=== PATIENT | male | born 1935 | race African-American/Black ===

== ENCOUNTER 2019-01-24 12:45 | Observation (INO) | payer MEDICARE, BC ==
[~2019-01-24] VITALS: Ht 175.3 cm; Wt 62.5 kg
[2019-01-24 14:14] LABS: BASO % 0.4 % (0.0-2.0); EOS % 0.2 % (0-4.0); GRAN # 4.8 (1.4-6.5); GRAN % 56.4 % (42.2-75.2); HEMOGLOBIN 10.9 g/dl (13.5-18.0); LYMPH # 2.9 (1.2-3.4); LYMPH % 34.2 % (20.0-51.0); MEAN CELL VOLUME 94 fl (80.0-100.0); MEAN CORPUSCULAR HEMOGLOBIN 30 pg (27.0-31.0); MEAN CORPUSCULAR HGB CONC 32 g/dl (33.0-37.0); MEAN PLATELET VOLUME 10.7 fl (7.4-10.4); MONO # 0.7 (0.1-0.6); MONO % 8.1 % (1.7-9.3); PLATELET COUNT 177 K/mm3 (130-400); REDCELL DISTRIBUTION WIDTH-CV 13.8 % (11.5-14.5)
[2019-01-24 14:27] LABS: ALANINE AMINOTRANSFERASE 13 U/L (21-72); ALKALINE PHOSPHATASE 74 U/L (50-136); ANION GAP 14 mmol/L (7-16); AST,SGOT 31 U/L (15-37); BILIRUBIN,TOTAL 0.4 mg/dL (0.0-1.0); BLOOD UREA NITROGEN 55 mg/dL (9-20); CALCIUM 10.5 mg/dL (8.4-10.2); CARBON DIOXIDE 27 mmol/L (22-30); CHLORIDE 99 mmol/L (98-107); CREATININE, serum 2.33 (0.66-1.25); GLUCOSE 182 mg/dL (74-106); POTASSIUM 4.1 mmol/L (3.4-5.0); SODIUM 140 mmol/L (137-145); TOTAL PROTEIN 7.7 gm/dL (6.4-8.2)
[2019-01-24 14:32] LABS: HEMATOCRIT 33.7 % (42.0-52.0)
[2019-01-24 14:44] LABS: TROPONIN-I < 0.012 ng/mL (0.000-0.035)
[2019-01-24] MEDS ORDERED: ZYBAN150 M1 (17:42)
[2019-01-24] MEDS ORDERED: VITAMIN D31000 I1 PO (17:42)
[2019-01-24] MEDS ORDERED: COLACE 100100 MG/CAP PO (17:43)
[2019-01-24] MEDS ORDERED: ZOLOFT 100MG100 MG PO (17:43)
[2019-01-24] MEDS ORDERED: XELPROS2.5 ML OU (17:44)
[2019-01-24] MEDS ORDERED: BETIMOL 5 ML5 ML OU (17:44)
[2019-01-24] MEDS ORDERED: MEVACOR 20M20 MG/TAB PO (17:45)
[2019-01-24] MEDS ORDERED: LIPITOR 10MG10 MG PO (17:45)
[2019-01-24] MEDS ORDERED: NOVOLOGMIX70/30 SQ ×2 (17:47)
[2019-01-24] MEDS ORDERED: LOPRESSOR 225 MG/TAB PO (17:47)
[2019-01-24] MEDS ORDERED: MAXZIDE 50 MG-71 TAB PO (17:48)
[2019-01-24] MEDS ORDERED: MEGACE ORAL40 MG/ML PO (17:49)
[2019-01-24] MEDS ORDERED: MYRBETR50MG PO (17:49)
--- NOTE | 2019-01-24 21:16 | NUR ---
PT ARRIVED VIA GURNEY FROM ER WITH AND SON BY SIDE. PT HAS DEMENTIA AND ANSWERED QUESTIONS. PT DOES NOT WALK AT THIS TIME. PT JUST CAME OUT OF THE HOSPITAL FOR A ROUND OF ECT TREATMENT AND WAS IN THE HOSPITAL IN [place] FOR 5 WEEKS. [facility] TO [facility] FOR RE[facility]AB. PT A/O TO SELF. PT DENIES PAIN OR DISCOMFORT AT THIS TIME. LOOKED OVER [facility] LIST AND ADVISED THAT IT WAS CORRECT. CALL LIGHT WITHIN REACH.
[2019-01-24 21:29] VITALS: BP 157/78; PULSE 67; TEMP 98.5
[2019-01-24 23:40] VITALS: BP 143/76; PULSE 70; TEMP 98.4
[2019-01-25] MEDS ORDERED: WELLBUTRIN XL150 MG PO (02:23)
[2019-01-25] MEDS ORDERED: PRINIVIL10 MG PO (02:42)
[2019-01-25 03:12] VITALS: BP 155/76; PULSE 73; TEMP 98
--- NOTE | 2019-01-25 09:45 | NUR ---
Pt resting in bed and alert this am but confused to place and time and situation. Pt has unlabored breathing and denies pain. Pt IV patent no redness or infiltration noted. Pt telemetry batteries changed and verified with telemetry that unit is working. Pt am assessment completed. Pt has call light in reach and fall precautions in place.
[2019-01-25 10:00] VITALS: BP 142/74; PULSE 69; TEMP 97.9
[2019-01-25 11:06] LABS: ALBUMIN 3.3 gm/dL (3.5-5.0); BILIRUBIN,TOTAL 0.3 mg/dL (0.0-1.0); CALCIUM 9.5 mg/dL (8.4-10.2); CREATININE, serum 1.9 (0.66-1.25); POTASSIUM 3.6 mmol/L (3.4-5.0); TOTAL PROTEIN 6.4 gm/dL (6.4-8.2)
[2019-01-25 11:14] LABS: MEAN CELL VOLUME 92 fl (80.0-100.0); MEAN CORPUSCULAR HGB CONC 33 g/dl (33.0-37.0); MEAN PLATELET VOLUME 10.8 fl (7.4-10.4); PLATELET COUNT 155 K/mm3 (130-400); RED BLOOD COUNT 3.21 M/mm3 (4.20-5.60); REDCELL DISTRIBUTION WIDTH-CV 13.8 % (11.5-14.5)
[2019-01-25 11:27] LABS: HEMATOCRIT 29.6 % (42.0-52.0); HEMOGLOBIN 9.8 g/dl (13.5-18.0); MEAN CORPUSCULAR HEMOGLOBIN 31 pg (27.0-31.0)
[2019-01-25 12:24] VITALS: BP 133/59; PULSE 68; TEMP 97.5
--- NOTE | 2019-01-25 13:03 | NUR ---
Plan: To return to a [facility] facility. Choice 1 ML, 2. [facility] [address] [place] [address] . Assess: SW met with patient, Trina Maxwell , and DTR Dr. Eulalia Martin . DPOA is . EMR contact is both parties. Patient is non-verbal and non ambulatory. reports that the patient was at [facility] for SNF and he had mutliple falls and concerns with staff. Family as decided to change to another [place] contracted facility. signed choice form for [facility] as first choice, and [facility] and rehab. reports that she resides in and would like the patient closer to her however DTR resides in [place] and father can be closer to her there. shares that the patient is total dep on wheelchair and needs assist in eating. PCP is Dr. Li in and Aniya Davis at the [facility], Red team. Patient obtains scripts through [place] mail[facility]pharmacy. Family indicated that he is a severe fall risk. Action: SW provided family with [place] and Medicare.gove list for nursing care. SW provide information on Admittance Attendant and attendent care. SW place signed copy of choice form in chart. SW faxed referrals to [facility] and [facility], awaiting decisions.
--- NOTE | 2019-01-25 14:06 | NUR ---
Pt resting in bed with fall precautions in place. Pt offerred more bites of his meal but pt refused. Will reattempt offerring snack later. Pt ate 10% of meal and drank 1/4 of coffee. Pt denies pain or needs. Pt did drink some water also. Pt has call light in reach and fluids running per orders.
[2019-01-25 17:21] VITALS: BP 143/68; PULSE 74; TEMP 98.2
--- NOTE | 2019-01-25 18:46 | NUR ---
Pt incontinent of BM and urine. Pt cares provided. Pt really likes cranberry juice. Pt refuses to take any bites of food at this time. Retry later per pt. Pt resting in bed and IV patent no redness or infiltration. Pt has fall precautions and call light in reach.
[2019-01-25 19:30] VITALS: BP 148/60; PULSE 78; TEMP 98.4
--- NOTE | 2019-01-25 19:39 | NUR ---
PT AWAKE IN BED WITH HOB ELEVATED TO 45 DEGREE ANGLE. PT VERY SOFT SPOKEN. PT DID NOT EAT SUPPER. PT DID DRINK SOME JUICE AND WATER. PT DENIES PAIN OR DISCOMFORT AND NO NEEDS AT THIS TIME. CALL LIGHT WITHIN REACH.
[2019-01-25 23:59] VITALS: BP 156/67; PULSE 78; TEMP 98.1
[2019-01-26 04:01] VITALS: BP 152/53; PULSE 87; TEMP 98.6
--- NOTE | 2019-01-26 04:44 | NUR ---
PT HAS HAD A FEW INCONTINENT EPISODES DURING THE NIGHT. ALSO, PT PULLED OFF TELEMETRY WELL, PLACED BACK ON PT RIGHT AWAY. PT PLEASANT AND CONFUSED. PT SOFT SPOKEN AND HARD TO HEAR. PT REFUSED ORANGE JUICE, BUT PT DID EAT SOME PUDDING EARLIER IN THE SHIFT. PT DENIES PAIN OR DISCOMFORT AND CONTINUES TO LEAN TO THE RIGHT SIDE. CALL LIGHT WITHIN REACH.
[2019-01-26 08:15] VITALS: BP 148/67; PULSE 75; TEMP 98
[2019-01-26 08:33] LABS: CALCIUM 9.3 mg/dL (8.4-10.2); CREATININE, serum 1.51 (0.66-1.25); MAGNESIUM 1.9 mg/dL (1.6-2.3); POTASSIUM 3.2 mmol/L (3.4-5.0)
[2019-01-26 11:34] VITALS: BP 156/74; PULSE 70; TEMP 97.6
[2019-01-26 16:09] VITALS: BP 144/66; PULSE 77; TEMP 98.7
--- NOTE | 2019-01-26 19:31 | NUR ---
Pt report given to Margot GUIDO
[2019-01-26 20:23] VITALS: BP 161/74; PULSE 74; TEMP 99
--- NOTE | 2019-01-26 20:30 | NUR ---
Initial shift assessment done- Confused- taking off gown and Tele pads--states he is cold-- put tele back on, new gown on- another blanker given- pleasant, not combative, Incontinent of urine- changed, IV to R/ac- NS at 75cc/hr infusing without problems. bed alarm on. Drinking his Ensure-refusing food, but did drink 2 ensures tonight
--- NOTE | 2019-01-26 23:30 | NUR ---
Pt with Tele pulled off, gown off, legs over side rail, IV was pulled out by patient. Tele back on- gown on- restated new INT to left forearm- IV fluids at 75cc/hr. Bed alarm on
[2019-01-26 23:48] VITALS: BP 167/88; PULSE 76; TEMP 99.1
[2019-01-27 04:27] VITALS: BP 183/90; PULSE 83; TEMP 978.5
--- NOTE | 2019-01-27 06:01 | NUR ---
Did get a few hours of sleep towards the morning- was given apresoline this morning for B/P 183/90- incontinent of urine throughout the night-
--- NOTE | 2019-01-27 07:39 | NUR ---
Received report from HAY Frost.
[2019-01-27 08:08] VITALS: BP 158/84; PULSE 80; TEMP 98.9
--- NOTE | 2019-01-27 10:18 | NUR ---
Pt awake upon entry, no C/O pain at this time, shift assessment complete, left Pt call light in reach, bed in lowest position.
--- NOTE | 2019-01-27 11:07 | NUR ---
LIYAH contacted [facility] about referral twice. They reported that the Social Working on the referral is in a meeting. LIYAH will wait for a phone call from the psychiatric social worker supervisor.
[2019-01-27 12:02] VITALS: BP 159/66; PULSE 93; TEMP 98
[2019-01-27 15:48] VITALS: BP 159/66; PULSE 93; TEMP 98
--- NOTE | 2019-01-27 16:06 | NUR ---
LIYAH met with patient and about discharge plan. LIYAH explained that patient is able to discharge today. Patient's reported that she has concerns with patient returning to [facility] and that is why she asked weekend SW to fax referrals to other retirement facilities. She also reports that she would prefer to take patient home than have him return to [facility]. SW reported we do not have an accepting facility besides [facility]. Patient's understood that patient will need to discharge today and the only option is [facility] Patient's rec'd a phone call from the active directory architect at [facility]. After speaking with her and resolving the concerns, patient's is agreeable to patient returning to [facility]. LIYAH informed nurse and hospitalist. LIYAH faxed discharge orders and arranged transportation. Patient will return to [facility] for retirement, PT, and OT.
--- NOTE | 2019-01-27 16:31 | NUR ---
Pt transferred to [facility], transported via [facility] [employer] [facility].
== END 2019-01-27 16:33 ==
LOC: COL.ER 12:45 → MEDICAL 17:19
PROVIDERS: Emergency Medicine; ADMIT Family Medicine
DX: R55 Syncope and collapse (principal); E44.0 Moderate protein-calorie malnutrition; F03.90 Unspecified dementia, unspecified severity, without behavioral disturbance, psychotic disturbance, mood disturbance, and anxiety; F43.10 Post-traumatic stress disorder, unspecified; I12.9 Hypertensive chronic kidney disease with stage 1 through stage 4 chronic kidney disease, or unspecified chronic kidney disease; E11.22 Type 2 diabetes mellitus with diabetic chronic kidney disease; N18.9 Chronic kidney disease, unspecified; E78.5 Hyperlipidemia, unspecified; Z90.49 Acquired absence of other specified parts of digestive tract
CPT/HCPCS: 99222-AI; 99233-AI; G0378; J0360; J1644; J1815; J7030

== ENCOUNTER → 2019-09-16 | Outpatient (CLI) | payer MEDICARE, BC ==
[~2019-09-16] MED LIST: BETIMOL 5 ML5 ML OU; COLACE 100100 MG/CAP PO; LIPITOR 10MG10 MG PO; LOPRESSOR 225 MG/TAB PO; MAXZIDE 50 MG-71 TAB PO; MEGACE ORAL40 MG/ML PO; MEVACOR 20M20 MG/TAB PO; MYRBETR50MG PO; NOVOLOGMIX70/30 SQ; PRINIVIL10 MG PO; VITAMIN D31000 I1 PO; WELLBUTRIN XL150 MG PO; XELPROS2.5 ML OU; ZOLOFT 100MG100 MG PO; ZYBAN150 M1
[2019-09-16 22:36] LABS: BASO % 0.4 % (0.0-2.0); EOS # 0.1 (0.0-0.7); EOS % 1.5 % (0-4.0); GRAN # 4.4 (1.4-6.5); HEMOGLOBIN 11.7 g/dl (13.5-18.0); LYMPH # 4.1 (1.2-3.4); LYMPH % 43.4 % (20.0-51.0); MEAN CELL VOLUME 92 fl (80.0-100.0); MEAN CORPUSCULAR HEMOGLOBIN 31 pg (27.0-31.0); MEAN CORPUSCULAR HGB CONC 33 g/dl (33.0-37.0); MEAN PLATELET VOLUME 10.4 fl (7.4-10.4); MONO # 0.8 (0.1-0.6); MONO % 8.5 % (1.7-9.3); PLATELET COUNT 175 K/mm3 (130-400); RED BLOOD COUNT 3.84 M/mm3 (4.20-5.60); REDCELL DISTRIBUTION WIDTH-CV 12.7 % (11.5-14.5)
[2019-09-16 22:38] LABS: HEMATOCRIT 35.3 % (42.0-52.0)
[2019-09-16 22:41] LABS: ALBUMIN 4.1 gm/dL (3.5-5.0); BILIRUBIN,TOTAL 0.4 mg/dL (0.0-1.0); CALCIUM 9.4 mg/dL (8.4-10.2); CREATININE, serum 1.56 (0.66-1.25); POTASSIUM 3.8 mmol/L (3.4-5.0); TOTAL PROTEIN 7.5 gm/dL (6.4-8.2)
== END ==
LOC: ZLAB.STJ 21:21 → COL.LAB 21:21
PROVIDERS: Family Medicine
DX: I50.9 Heart failure, unspecified (principal); R68.89 Other general symptoms and signs

== ENCOUNTER → 2019-10-03 | Outpatient (CLI) | payer MEDICARE, BC ==
[2019-10-03 17:04] LABS: COLLECTION METHOD CATHETER
[2019-10-03 17:17] LABS: MUCOUS Present /lpf; PH 6 (5-8); SQUAMOUS EPITHELIAL None Seen /hpf; URINE APPEARANCE Clear; URINE BACTERIA None Seen /hpf; URINE BILIRUBIN Negative (NEGATIVE); URINE BLOOD Negative (NEGATIVE); URINE COLOR Yellow; URINE GLUCOSE 3+ (NEGATIVE); URINE KETONE Negative (NEGATIVE); URINE LEUKOCYTE ESTERASE Negative (NEGATIVE); URINE NITRATE Negative (NEGATIVE); URINE PROTEIN(semi-quant) 2+ (NEGATIVE); URINE RBC 0-2 /hpf; URINE UROBILINOGEN Negative (NEGATIVE)
== END ==
LOC: ZLAB.STJ 16:41
PROVIDERS: Family Medicine
DX: N39.0 Urinary tract infection, site not specified (principal)

== ENCOUNTER → 2019-10-15 | Outpatient (CLI) | payer MEDICARE, BC ==
[2019-10-15 12:03] LABS: COLLECTION METHOD CATHETER
[2019-10-15 12:23] LABS: PH 7 (5-8); SQUAMOUS EPITHELIAL None Seen /hpf; URINE APPEARANCE Clear; URINE BACTERIA None Seen /hpf; URINE BILIRUBIN Negative (NEGATIVE); URINE BLOOD Negative (NEGATIVE); URINE COLOR Straw; URINE GLUCOSE 3+ (NEGATIVE); URINE KETONE Negative (NEGATIVE); URINE LEUKOCYTE ESTERASE Negative (NEGATIVE); URINE NITRATE Negative (NEGATIVE); URINE PROTEIN(semi-quant) 2+ (NEGATIVE); URINE RBC 0-2 /hpf; URINE UROBILINOGEN Negative (NEGATIVE)
== END ==
LOC: ZLAB.STJ 09:23
PROVIDERS: Family Medicine
DX: N39.0 Urinary tract infection, site not specified (principal)

== ENCOUNTER → 2019-11-19 | Outpatient (CLI) | payer MEDICARE, BC ==
[2019-11-19 11:26] LABS: BASO % 0.4 % (0.0-2.0); EOS # 0.2 (0.0-0.7); EOS % 1.6 % (0-4.0); GRAN # 5.4 (1.4-6.5); GRAN % 51.6 % (42.2-75.2); HEMOGLOBIN 10.3 g/dl (13.5-18.0); LYMPH % 38.4 % (20.0-51.0); MEAN CELL VOLUME 94 fl (80.0-100.0); MEAN CORPUSCULAR HEMOGLOBIN 32 pg (27.0-31.0); MEAN CORPUSCULAR HGB CONC 34 g/dl (33.0-37.0); MEAN PLATELET VOLUME 10.3 fl (7.4-10.4); MONO # 0.8 (0.1-0.6); MONO % 7.7 % (1.7-9.3); PLATELET COUNT 176 K/mm3 (130-400); RED BLOOD COUNT 3.25 M/mm3 (4.20-5.60)
[2019-11-19 11:28] LABS: HEMATOCRIT 30.4 % (42.0-52.0)
[2019-11-19 11:34] LABS: ALBUMIN 3.7 gm/dL (3.5-5.0); BILIRUBIN,TOTAL 0.3 mg/dL (0.0-1.0); CALCIUM 9.6 mg/dL (8.4-10.2); CREATININE, serum 1.77 (0.66-1.25); POTASSIUM 3.6 mmol/L (3.4-5.0); TOTAL PROTEIN 7.3 gm/dL (6.4-8.2)
[2019-11-19 17:53] LABS: CHOLESTEROL RISK RATIO 5.7
== END ==
LOC: ZLAB.STJ 10:23
PROVIDERS: Family Medicine
DX: I10 Essential (primary) hypertension (principal); E78.5 Hyperlipidemia, unspecified

== ENCOUNTER → 2019-12-01 | Outpatient (CLI) | payer MEDICARE, BC ==
[2019-12-01 11:47] LABS: CALCIUM 9.1 mg/dL (8.4-10.2); CREATININE, serum 1.71 (0.66-1.25); POTASSIUM 3.1 mmol/L (3.4-5.0)
== END ==
LOC: ZLAB.STJ 09:30
PROVIDERS: Family Medicine
DX: I10 Essential (primary) hypertension (principal)

== ENCOUNTER → 2019-12-24 | Outpatient (CLI) | payer MEDICARE, BC ==
[2019-12-24 11:29] LABS: CALCIUM 9.5 mg/dL (8.4-10.2); CREATININE, serum 1.82 (0.66-1.25); POTASSIUM 3.2 mmol/L (3.4-5.0)
== END ==
LOC: ZLAB.STJ 11:07
PROVIDERS: Family Medicine
DX: I10 Essential (primary) hypertension (principal)

== ENCOUNTER → 2020-01-06 | Outpatient (CLI) | payer MEDICARE, BC | LOC: ZLAB.STJ 11:27 | DX: E11.9 Type 2 diabetes mellitus without complications (principal) ==

== ENCOUNTER → 2020-01-14 | Outpatient (CLI) | payer MEDICARE, BC ==
[~2020-01-14] MED LIST changes: +K-DUR20 MEQ PO
== END ==
LOC: ZLAB.STJ 15:30
DX: Z01.84 Encounter for antibody response examination (principal); Z20.828 Contact with and (suspected) exposure to other viral communicable diseases

== ENCOUNTER 2020-01-23 14:05 | Emergency (ER) | payer MEDICARE, BC ==
[2005-09-27 07:36] VITALS: BP 129/77
[~2020-01-23] VITALS: Ht 177.8 cm; Wt 86.4 kg
[~2020-01-23 14:05] MED LIST changes: -K-DUR20 MEQ PO
[2020-01-23 14:06] VITALS: TEMP 98.3
[2020-01-23 15:11] LABS: BASO % 0.4 % (0.0-2.0); EOS # 0.1 (0.0-0.7); EOS % 1.5 % (0-4.0); GRAN # 4.9 (1.4-6.5); GRAN % 54.2 % (42.2-75.2); HEMOGLOBIN 10.4 g/dl (13.5-18.0); LYMPH # 3.1 (1.2-3.4); LYMPH % 34.5 % (20.0-51.0); MEAN CELL VOLUME 93 fl (80.0-100.0); MEAN CORPUSCULAR HEMOGLOBIN 31 pg (27.0-31.0); MEAN CORPUSCULAR HGB CONC 33 g/dl (33.0-37.0); MEAN PLATELET VOLUME 9.6 fl (7.4-10.4); MONO # 0.8 (0.1-0.6); MONO % 8.7 % (1.7-9.3); PLATELET COUNT 156 K/mm3 (130-400); RED BLOOD COUNT 3.34 M/mm3 (4.20-5.60)
[2020-01-23 15:15] LABS: HEMATOCRIT 31.1 % (42.0-52.0)
[2020-01-23 15:27] LABS: ALBUMIN 3.9 gm/dL (3.5-5.0); BILIRUBIN,TOTAL 0.4 mg/dL (0.0-1.0); CALCIUM 9.3 mg/dL (8.4-10.2); CREATININE, serum 2.03 (0.66-1.25); POTASSIUM 3.3 mmol/L (3.4-5.0); TOTAL PROTEIN 7.7 gm/dL (6.4-8.2)
[2020-01-23 15:40] LABS: TROPONIN-I < 0.012 ng/mL (0.000-0.035)
[2020-01-23] MEDS ORDERED: K-DUR20 MEQ PO (16:40)
[2020-01-23 18:55] VITALS: BP 162/88; PULSE 77
== END 2020-01-23 19:00 | disposition home or self-care (01) ==
LOC: COL.ER 14:05
PROVIDERS: Emergency Medicine
DX: R55 Syncope and collapse (principal); E87.6 Hypokalemia; E11.22 Type 2 diabetes mellitus with diabetic chronic kidney disease; I12.9 Hypertensive chronic kidney disease with stage 1 through stage 4 chronic kidney disease, or unspecified chronic kidney disease; N18.9 Chronic kidney disease, unspecified; F03.90 Unspecified dementia, unspecified severity, without behavioral disturbance, psychotic disturbance, mood disturbance, and anxiety; Z79.4 Long term (current) use of insulin
CPT/HCPCS: J3475; J7040

== ENCOUNTER → 2020-02-09 | Outpatient (CLI) | payer MEDICARE, BC ==
[~2020-02-09] MED LIST changes: +K-DUR20 MEQ PO
[2020-02-09 13:27] LABS: COLLECTION METHOD CATHETER
[2020-02-09 14:06] LABS: MUCOUS Present /lpf; PH 5 (5-8); SQUAMOUS EPITHELIAL 0-2 /hpf; URINE APPEARANCE Hazy; URINE BACTERIA None Seen /hpf; URINE BILIRUBIN Negative (NEGATIVE); URINE BLOOD Negative (NEGATIVE); URINE COLOR Yellow; URINE GLUCOSE Negative (NEGATIVE); URINE KETONE Negative (NEGATIVE); URINE LEUKOCYTE ESTERASE Negative (NEGATIVE); URINE NITRATE Negative (NEGATIVE); URINE PROTEIN(semi-quant) 2+ (NEGATIVE); URINE RBC 0-2 /hpf; URINE UROBILINOGEN Negative (NEGATIVE)
== END ==
LOC: ZLAB.STJ 10:22
PROVIDERS: Family Medicine
DX: N39.0 Urinary tract infection, site not specified (principal)

== ENCOUNTER → 2020-07-28 | Outpatient (CLI) | payer MEDICARE, BC ==
[2020-07-28 20:25] LABS: BASO % 0.4 % (0.0-2.0); EOS # 0.1 (0.0-0.7); EOS % 1.4 % (0-4.0); GRAN # 4.1 (1.4-6.5); GRAN % 41.2 % (42.2-75.2); LYMPH # 4.8 (1.2-3.4); LYMPH % 47.8 % (20.0-51.0); MEAN CELL VOLUME 94 fl (80.0-100.0); MEAN CORPUSCULAR HGB CONC 34 g/dl (33.0-37.0); MEAN PLATELET VOLUME 10.7 fl (7.4-10.4); MONO # 0.9 (0.1-0.6); MONO % 8.9 % (1.7-9.3); PLATELET COUNT 171 K/mm3 (130-400); RED BLOOD COUNT 3.07 M/mm3 (4.20-5.60)
[2020-07-28 20:29] LABS: HEMATOCRIT 28.8 % (42.0-52.0); HEMOGLOBIN 9.8 g/dl (13.5-18.0); MEAN CORPUSCULAR HEMOGLOBIN 32 pg (27.0-31.0)
[2020-07-28 20:35] LABS: ALBUMIN 3.2 gm/dL (3.5-5.0); BILIRUBIN,TOTAL 0.3 mg/dL (0.0-1.0); CALCIUM 8.6 mg/dL (8.4-10.2); CREATININE, serum 2.24 (0.66-1.25); POTASSIUM 3.4 mmol/L (3.4-5.0); TOTAL PROTEIN 6.1 gm/dL (6.4-8.2)
== END ==
LOC: ZCOL.LAB 20:12
PROVIDERS: Family Medicine
DX: I10 Essential (primary) hypertension (principal)